=== PATIENT | female | born 1985 | race Caucasian/White ===

== ENCOUNTER → 2021-08-18 08:23 | Outpatient (CLI) | payer MEDICAID, SELFPAY ==
[2021-08-15 18:28] LABS: Basophils # 0.1 K/mm3 (0-0.2); Basophils % 1.4 % (0.1-2.0); Eosinophils # 0.2 K/mm3 (0.0-0.4); Hematocrit 44.6 % (37.0-47.0); Lymphocytes # 2.1 K/mm3 (0.7-4.5); Lymphocytes % 25.3 % (10-50); Mean Corpuscular HGB Conc 31.3 g/dL (31.8-35.4); Mean Corpuscular Hemoglobin 30.8 pg (27.0-31.2); Mean Corpuscular Volume 98.3 fl (81-99); Mean Platelet Volume 10.3 fl (7.4-10.4); Monocytes # 0.7 K/mm3 (0.1-1.0); Monocytes % 7.6 % (1.7-9.3); Neutrophils # 5.4 K/mm3 (1.8-7.8); Neutrophils % 63.7 % (37.0-80.0); Platelet Count 333 K/mm3 (142-424); Red Blood Count 4.53 M/mm3 (4.20-5.40); Red Cell Distribution Width 14.5 % (11.5-17.5); White Blood Count 8.5 K/mm3 (4.8-10.8)
[2021-08-15 19:38] LABS: Amphetamine/Metha Screen,Urine Negative ng/ml (<1000)
[2021-08-15 19:39] LABS: Barbiturates Screen,Urine Negative ng/ml (<200); Benzodiazepines Screen,Urine Negative ng/ml (<200)
[2021-08-15 19:40] LABS: Cannabinoid Screen,Urine Negative ng/ml (<50); Cocaine Screen,Urine Negative ng/ml (<300)
[2021-08-15 19:41] LABS: Methadone Screen,Urine Negative ng/ml (<300)
[2021-08-15 19:42] LABS: Phencyclidine Screen,Urine Negative ng/ml (<25)
[2021-08-15 19:43] LABS: Opiate Screen,Urine Negative ng/ml (<300)
[2021-08-15 19:54] LABS: Alanine Aminotransferase 18 U/L (12-78); Albumin Level 4.5 g/dl (3.5-5.0); Albumin/Globulin Ratio 1.4 (1.1-1.8); Alkaline Phosphatase 89 U/L (38-126); Anion Gap 15.7 mEq/L (5-15); Aspartate Amino Transferase 26 U/L (14-36); Blood Urea Nitrogen 10 mg/dl (7-17); Calcium 9.4 mg/dl (8.4-10.2); Carbon Dioxide 23 mmol/L (22.0-30.0); Chloride 103 mmol/L (98-107); Chol/HDL Ratio 3.3 (1-3.5); Cholesterol 205 mg/dl (140-200); Estimated Glomerular Filt Rate 112 ml/min (>60); GFR (African American) 135 ML/MIN (>60); Globulin 3.2 g/dL (1.3-3.2); Glucose 88 mg/dl (74-100); HDL Cholesterol 63 mg/dl (40-60); Potassium 3.7 mmoL/L (3.5-5.1); Sodium 138 mmol/L (136-145); Total Protein,Serum 7.7 g/dl (6.3-8.2); Triglycerides 84 mg/dl (30-150); VLDL Cholesterol 17 mg/dL (0-40)
[2021-08-15 19:57] LABS: Bilirubin,Total < 0.1 mg/dl (0.2-1.3)
[2021-08-15 20:05] LABS: Direct LDL Cholesterol 99.58 mg/dL (100-129)
[2021-08-15 20:11] LABS: Free T4 (Free Thyroxine) 1.03 ng/dl (0.78-2.19)
[2021-08-15 20:27] LABS: Thyroid Stimulating Hormone 1.86 uIU/mL (0.465-4.68)
== END ==
PROVIDERS: Visit Provider Emergency Medicine
DX: G62.9 Polyneuropathy, unspecified (principal); E55.9 Vitamin D deficiency, unspecified; E66.9 Obesity, unspecified; Z68.31 Body mass index [BMI] 31.0-31.9, adult; Z79.899 Other long term (current) drug therapy
CPT/HCPCS: 80053; 80061; 80305; 82306; 84439; 84443; 85025

== ENCOUNTER → 2022-12-15 08:16 | Outpatient (CLI) | payer MEDICAID, SELFPAY ==
[2022-12-15 19:04] LABS: Basophils % 0.4 % (0.1-2.0); Eosinophils # 0.2 K/mm3 (0.0-0.4); Hematocrit 41.3 % (37.0-47.0); Hemoglobin 14.2 g/dL (12.2-16.2); Lymphocytes # 1.6 K/mm3 (0.7-4.5); Lymphocytes % 18.4 % (10-50); Mean Corpuscular HGB Conc 34.4 g/dL (31.8-35.4); Mean Corpuscular Hemoglobin 31.9 pg (27.0-31.2); Mean Corpuscular Volume 92.8 fl (81-99); Mean Platelet Volume 9.8 fl (7.4-10.4); Monocytes # 0.6 K/mm3 (0.1-1.0); Monocytes % 7.2 % (1.7-9.3); Neutrophils # 6.4 K/mm3 (1.8-7.8); Platelet Count 289 K/mm3 (142-424); Red Blood Count 4.45 M/mm3 (4.20-5.40); Red Cell Distribution Width 15.3 % (11.5-17.5); White Blood Count 8.8 K/mm3 (4.8-10.8)
[2022-12-15 20:02] LABS: Alanine Aminotransferase 21 U/L (12-78); Albumin Level 4.6 g/dl (3.5-5.0); Albumin/Globulin Ratio 1.5 (1.1-1.8); Alkaline Phosphatase 78 U/L (38-126); Anion Gap 15.4 mEq/L (5-15); Aspartate Amino Transferase 31 U/L (14-36); Bilirubin,Total 0.5 mg/dl (0.2-1.3); Blood Urea Nitrogen 12 mg/dl (7-17); Calcium 9.4 mg/dl (8.4-10.2); Carbon Dioxide 24 mmol/L (22.0-30.0); Chloride 103 mmol/L (98-107); Chol/HDL Ratio 2.9 (1-3.5); Cholesterol 187 mg/dl (140-200); Estimated Glomerular Filt Rate 137 ml/min (>60); GFR (African American) 166 ML/MIN (>60); Globulin 3.1 g/dL (1.3-3.2); Glucose 91 mg/dl (74-100); HDL Cholesterol 65 mg/dl (40-60); Potassium 4.4 mmoL/L (3.5-5.1); Sodium 138 mmol/L (136-145); Total Protein,Serum 7.7 g/dl (6.3-8.2); Triglycerides 56 mg/dl (30-150); VLDL Cholesterol 11 mg/dL (0-40)
[2022-12-15 20:12] LABS: Direct LDL Cholesterol 101.77 mg/dL (100-129)
[2022-12-15 20:20] LABS: Free T4 (Free Thyroxine) 1.16 ng/dl (0.78-2.19)
[2022-12-15 20:35] LABS: Thyroid Stimulating Hormone 2.49 uIU/mL (0.465-4.68)
== END ==
PROVIDERS: PCP Emergency Medicine; Visit Provider Emergency Medicine
DX: E66.9 Obesity, unspecified (principal); Z68.30 Body mass index [BMI] 30.0-30.9, adult
CPT/HCPCS: 80053; 80061; 82306; 84439; 84443; 85025

== ENCOUNTER 2024-04-25 14:02 | Outpatient (CLI) | payer MEDICAID, SELFPAY ==
[2024-04-25 19:24] LABS: Hep A Ab, IgM ND
[2024-04-25 19:49] LABS: Basophils # 0.1 K/mm3 (0-0.2); Basophils % 0.8 % (0.1-2.0); Eosinophils # 0.1 K/mm3 (0.0-0.4); Eosinophils % 1.3 % (0.1-12.0); Hematocrit 37.5 % (37.0-47.0); Hemoglobin 12.3 g/dL (12.2-16.2); Lymphocytes # 1.7 K/mm3 (0.7-4.5); Mean Corpuscular HGB Conc 32.8 g/dL (31.8-35.4); Mean Corpuscular Hemoglobin 29.1 pg (27.0-31.2); Mean Corpuscular Volume 88.9 fl (81-99); Mean Platelet Volume 11.7 fl (7.4-10.4); Monocytes # 0.4 K/mm3 (0.1-1.0); Monocytes % 6.1 % (1.7-9.3); Neutrophils # 4.8 K/mm3 (1.8-7.8); Neutrophils % 67.4 % (37.0-80.0); Platelet Count 293 K/mm3 (142-424); Red Blood Count 4.22 M/mm3 (4.20-5.40); Red Cell Distribution Width 16.8 % (11.5-17.5); White Blood Count 7.1 K/mm3 (4.8-10.8)
[2024-04-25 21:16] LABS: Alanine Aminotransferase 21 U/L (12-78); Albumin Level 4.5 g/dl (3.5-5.0); Albumin/Globulin Ratio 1.6 (1.1-1.8); Alkaline Phosphatase 80 U/L (38-126); Anion Gap 13.9 mEq/L (5-15); Aspartate Amino Transferase 26 U/L (14-36); Bilirubin,Total 0.2 mg/dl (0.2-1.3); Blood Urea Nitrogen 15 mg/dl (7-17); Calcium 9.4 mg/dl (8.4-10.2); Carbon Dioxide 25 mmol/L (22.0-30.0); Chloride 103 mmol/L (98-107); Chol/HDL Ratio 2.9 (1-3.5); Cholesterol 171 mg/dl (140-200); Estimated Glomerular Filt Rate 79 ml/min (>60); GFR (African American) 96 ML/MIN (>60); Globulin 2.8 g/dL (1.3-3.2); Glucose 97 mg/dl (74-100); HDL Cholesterol 60 mg/dl (40-60); Potassium 3.9 mmoL/L (3.5-5.1); Sodium 138 mmol/L (136-145); Total Protein,Serum 7.3 g/dl (6.3-8.2); Triglycerides 66 mg/dl (30-150); VLDL Cholesterol 13 mg/dL (0-40)
[2024-04-25 21:27] LABS: Direct LDL Cholesterol 85.81 mg/dL (100-129)
[2024-04-25 21:35] LABS: 25-OH Vitamin D, Total < 12.8 ng/mL (30-100); T4 (Thyroxine) 9.3 ug/dl (5.53-11.0)
[2024-04-25 21:49] LABS: Thyroid Stimulating Hormone 1.92 uIU/mL (0.465-4.68)
[2024-04-25 21:57] LABS: HIV Combo NEGATIVE (Negative)
[2024-04-25 22:10] LABS: Hepatitis C Ab Qual. W/ RFX NEGATIVE (Negative)
[2024-04-27 08:48] LABS: Hep A Ab, Total Negative (Negative); Hep B Core Ab, Total Positive (Negative); Hep B Surface Ab, Qual Non Reactive (.); Hepatitis B Surface Antigen Negative (Negative)
== END 2024-04-25 23:59 | disposition home or self-care (01) ==
LOC: LAB.DROPOF 04-26 13:17
PROVIDERS: PCP Nurse Practitioner Family; Visit Provider Nurse Practitioner Family
DX: M79.2 Neuralgia and neuritis, unspecified (principal); B19.10 Unspecified viral hepatitis B without hepatic coma; R56.9 Unspecified convulsions; E66.9 Obesity, unspecified; Z68.32 Body mass index [BMI] 32.0-32.9, adult; Z11.4 Encounter for screening for human immunodeficiency virus [HIV]; Z11.59 Encounter for screening for other viral diseases
CPT/HCPCS: 80053; 80061; 82306; 84436; 84443; 85025; 86704; 86706; 86708; 86709; 86803; 87340; 87389; 87902